=== PATIENT | female | born 1935 | race Caucasian/White ===

== ENCOUNTER 2018-04-11 14:03 | Emergency (ER) | payer MEDICARE, BC ==
[2018-04-11 14:48] VITALS: BP 121/67
--- NOTE | 2018-04-11 15:20 | UC ---
Complaint Female HPI - HPI Summary HPI Summary: 82YO FEMALE who comes to clinic today with a complaint of increased urinary frequency and dysuria for several days. The pain is mild. There is no flank pain. No fevers or chills. Drinking more water decreases the pain but the frequency remains. This reminds the patient of prior UTIs. - History Of Current Complaint Chief Complaint: UCGU Stated Complaint: URINARY Time Seen by Provider: 04/11/18 15:13 Hx Last Menstrual Period: n/a Pain Intensity: 8 - Allergies/Home Medications Allergies/Adverse Reactions: Allergies Allergy/AdvReac Type Severity Reaction Status Date / Time MS Penicillins [Penicillins] Allergy Hives Verified 07/11/15 13:31 NSAIDS (Non-Steroidal Allergy See Comment Verified 04/11/18 14:46 Anti-Inflamma MS Omeprazole [From Prilosec] AdvReac Headache Verified 07/11/15 13:31 Home Medications: Home Medications Mesalamine [Lialda] 2.4 gm PO DAILY 04/11/18 [History Confirmed 04/11/18] PMH/Surg Hx/FS Hx/Imm Hx Previously Healthy: No - Surgical History Surgical History: Yes Surgery Procedure, Year, and Place: Rt Vestibular Nerve section-1987, Cholecystectomy 2000, Right Mastectomy-2004. D&C X2 - Family History Known Family History: Positive: Hypertension Negative: Diabetes - Social History Alcohol Use: "one or two glasses of wine a week" Alcohol Amount: 1-2 Substance Use Type: None Smoking Status (MU): Never Smoked Tobacco Have You Smoked in the Last Year: No - Immunization History Most Recent Influenza Vaccination: April 2015 Review of Systems Constitutional: Negative Skin: Negative Eyes: Negative ENT: Negative Respiratory: Negative Cardiovascular: Negative Gastrointestinal: Negative Genitourinary: Dysuria, Frequency Motor: Negative Neurovascular: Negative Musculoskeletal: Negative Neurological: Negative Is Patient Immunocompromised?: No All Other Systems Reviewed And Are Negative: Yes Physical Exam Triage Information Reviewed: Yes Appearance: Well-Appearing, No Pain Distress, Well-Nourished Vital Signs: Initial Vital Signs Temp 97.4 F 04/11/18 14:39 Pulse 90 04/11/18 14:39 Resp 17 04/11/18 14:39 BP 121/67 04/11/18 14:39 Pulse Ox 96 04/11/18 14:39 Vital Signs Reviewed: Yes Neck: Positive: Supple Respiratory: Positive: Lungs clear, Normal breath sounds, No respiratory distress Cardiovascular: Positive: RRR Abdomen Description: Positive: Nontender. Negative: CVA Tenderness (R), CVA Tenderness (L) Bowel Sounds: Positive: Present Musculoskeletal: Positive: Strength Intact, ROM Intact Neurological Exam: Normal Neurological: Positive: Alert Psychological Exam: Normal Skin Exam: Normal Diagnostics - Laboratory Diagnostic Studies Completed/Ordered: Urine shows some leukocytes and blood Complaint Female Dx - Course Course Of Treatment: I prescribed nitrofurantoin 100 mg by mouth twice a day 7 days. Follow-up PMD. Recheck sooner if worse. - Differential Dx/Diagnosis Provider Diagnoses: UTI Discharge - Sign-Out/Discharge Documenting (check all that apply): Patient Departure All imaging exams completed and their final reports reviewed: No Studies - Discharge Plan Condition: Stable Disposition: HOME Prescriptions: Nitrofurantoin Monohyd/M-Cryst [Macrobid 100 mg Capsule] 100 mg PO BID #14 cap Patient Education Materials: Urinary Tract Infection in Women (ED) Referrals: Ashvin Parker MD [Primary Care Provider] - Additional Instructions: FOLLOW UP WITH YOUR DOCTOR. GET RECHECKED FOR ANY WORSENING OF YOUR CONDITION OR QUESTIONS OR CONCERNS. - Billing Disposition and Condition Condition: STABLE Disposition: Home - Attestation Statements Document Initiated by Scribe: Gisselle
== END 2018-04-11 15:34 | disposition home or self-care (01) ==
LOC: UCCORT 14:03
DX: N39.0 Urinary tract infection, site not specified (principal); Z88.0 Allergy status to penicillin; Z88.8 Allergy status to other drugs, medicaments and biological substances
CPT/HCPCS: 81003; 87086; 99212; G0463

== ENCOUNTER 2018-11-18 12:51 | Emergency (ER) | payer MEDICARE, BC ==
[2018-11-18 13:19] VITALS: BP 126/75
--- NOTE | 2018-11-18 13:37 | UC ---
Complaint Female HPI - HPI Summary HPI Summary: Pt presents with c/o sudden onset of pain with urination X 1 day. - History Of Current Complaint Stated Complaint: URINARY COMPLAINT Time Seen by Provider: 11/18/18 13:15 Hx Obtained From: Patient Hx Last Menstrual Period: n/a ?: No Onset/Duration: Sudden Onset, Lasting Days, Still Present Timing: Constant Severity Initially: Mild Severity Currently: Mild Pain Intensity: 0 Character: Dull, Burning Aggravating Factor(s): Urination Associated Signs And Symptoms: Positive: Negative - Risk Factors Ectopic Risk Factor: Negative Ovarian Torsion Risk Factor: Negative - Allergies/Home Medications Allergies/Adverse Reactions: Allergies Allergy/AdvReac Type Severity Reaction Status Date / Time NSAIDS (Non-Steroidal Allergy See Comment Verified 04/11/18 14:46 Anti-Inflamma omeprazole Allergy Headache Verified 11/18/18 13:13 Penicillins Allergy Hives Verified 11/18/18 13:13 PMH/Surg Hx/FS Hx/Imm Hx Previously Healthy: Yes Cardiovascular History: Hypertension - Surgical History Surgical History: Yes Surgery Procedure, Year, and Place: Rt Vestibular Nerve section-1987, Cholecystectomy 2000, Right Mastectomy-2004. D&C X2 - Family History Known Family History: Positive: Hypertension Negative: Diabetes - Social History Occupation: Retired Lives: With Family Alcohol Use: Occasionally Alcohol Amount: 1-2 Substance Use Type: None Smoking Status (MU): Never Smoked Tobacco Have You Smoked in the Last Year: No - Immunization History Most Recent Influenza Vaccination: April 2015 Vaccination Up to Date: No Review of Systems All Other Systems Reviewed And Are Negative: Yes Constitutional: Positive: Negative Skin: Positive: Negative Eyes: Positive: Negative ENT: Positive: Negative Respiratory: Positive: Negative Cardiovascular: Positive: Negative Gastrointestinal: Positive: Negative Genitourinary: Positive: Dysuria Motor: Positive: Negative Neurovascular: Positive: Negative Musculoskeletal: Positive: Negative Neurological: Positive: Negative Psychological: Positive: Negative Is Patient Immunocompromised?: No Physical Exam Triage Information Reviewed: Yes Appearance: Well-Appearing Vital Signs: Initial Vital Signs Temp 97.3 F 11/18/18 13:16 Pulse 86 11/18/18 13:16 Resp 18 11/18/18 13:16 BP 126/75 11/18/18 13:16 Pulse Ox 98 11/18/18 13:16 Vital Signs Reviewed: Yes Eye Exam: Normal ENT Exam: Normal Dental Exam: Normal Neck exam: Normal Respiratory Exam: Normal Cardiovascular Exam: Normal Abdominal Exam: Normal Musculoskeletal Exam: Normal Neurological Exam: Normal Psychological Exam: Normal Skin Exam: Normal Complaint Female Dx - Differential Dx/Diagnosis Differential Diagnosis/HQI/PQRI: Urinary Tract Infection Provider Diagnosis: UTI (urinary tract infection) Discharge - Sign-Out/Discharge Documenting (check all that apply): Patient Departure All imaging exams completed and their final reports reviewed: No Studies - Discharge Plan Condition: Stable Disposition: HOME Prescriptions: Nitrofurantoin Monohyd/M-Cryst [Macrobid 100 mg Capsule] 100 mg PO Q12H #10 cap Sulfamethox/Trimethoprim DS* [Bactrim DS 800/160 TAB*] 1 tab PO BID 5 Days #10 tab Patient Education Materials: Urinary Tract Infection in Women (ED) Referrals: Reza Bernabe MD [Medical Doctor] - If Needed Ashvin Praker MD [Primary Care Provider] - If Needed - Billing Disposition and Condition Condition: STABLE Disposition: Home - Attestation Statements Provider Attestation: Chart reviewed. I was available for consult. I did not see nor disposition this patient.
== END 2018-11-18 13:55 | disposition home or self-care (01) ==
LOC: UCCORT 12:51
DX: N39.0 Urinary tract infection, site not specified (principal); I10 Essential (primary) hypertension; Z88.0 Allergy status to penicillin; Z88.8 Allergy status to other drugs, medicaments and biological substances
CPT/HCPCS: 81003; 87077; 87086; 87186; 99212; G0463

== ENCOUNTER 2018-11-29 09:55 | Emergency (ER) | payer MEDICARE, BC ==
[2018-11-29 10:54] VITALS: BP 90/49
--- NOTE | 2018-11-29 11:09 | UC ---
UC General HPI - HPI Summary HPI Summary: Patient c/o lower sacral pain worse over the past 3-4 days. Patient with known arthritis and DJD - she has been going to a chiropractor since june every other week - does not seem to be helping. Has known sciatic b/l, worse on left. Known weakness in LLE. No numbness or tingling. Denies any falls. No exertional activity. Had her grandson take out her garbage. States she can only take tylenol due to her microscopic colitis - Her GI doc told her she can' t take NSAIDs. No falls. Lives alone. Independent of ADLs. No assist device. ALso has known neck pain - pain with movement. In the process of switching to a PCP in [place]. not interested in any surgical intervention. Meds: Reviewed - History of Current Complaint Chief Complaint: UCBackPain Stated Complaint: LOWER BACK PAIN Time Seen by Provider: 11/29/18 10:51 Hx Last Menstrual Period: n/a Pain Intensity: 0 - Allergy/Home Medications Allergies/Adverse Reactions: Allergies Allergy/AdvReac Type Severity Reaction Status Date / Time NSAIDS (Non-Steroidal Allergy See Comment Verified 11/29/18 10:54 Anti-Inflamma omeprazole Allergy Headache Verified 11/29/18 10:54 Penicillins Allergy Hives Verified 11/29/18 10:54 Home Medications: Home Medications Cyanocobalamin TAB* [Vitamin B12 TAB*] 1,000 mcg PO DAILY 11/29/18 [History Confirmed 11/29/18] PMH/Surg Hx/FS Hx/Imm Hx Previously Healthy: Yes Cardiovascular History: Hypertension GI/ History: Other - microscopic arthritis - Surgical History Surgical History: Yes Surgery Procedure, Year, and Place: Rt Vestibular Nerve section-1987, Cholecystectomy 2000, Right Mastectomy-2004. D&C X2 - Family History Known Family History: Positive: Hypertension Negative: Diabetes - Social History Alcohol Use: Occasionally Alcohol Amount: 1-2 Substance Use Type: None Smoking Status (MU): Never Smoked Tobacco Have You Smoked in the Last Year: No - Immunization History Most Recent Influenza Vaccination: April 2015 Vaccination Up to Date: No Review of Systems All Other Systems Reviewed And Are Negative: Yes Musculoskeletal: Positive: Decreased ROM Physical Exam Triage Information Reviewed: Yes Appearance: Well-Appearing, Other: - diaphoretic -Not new Vital Signs: Initial Vital Signs Temp 97.9 F 11/29/18 10:43 Pulse 99 11/29/18 10:43 Resp 18 11/29/18 10:43 BP 90/49 11/29/18 10:43 Pulse Ox 97 11/29/18 10:43 Vital Signs Reviewed: Yes Neck: Positive: Supple, Nontender, Other: - Pain with ROM Musculoskeletal: Positive: Other: - pain with movement in sacral/pelvic region. No pain on palpation over spinous process Pain with ROM rotation and flexion of cervical spine. Neurological: Positive: Other: - right sided facial droop (chronic) LLE weakness (chronic) Diagnostics - Radiology pelvis xray Radiology Interpretation Completed By: Radiologist Summary of Radiographic Findings: Osteoarthritis. No acute finding Course/Dx - Course Course Of Treatment: This is an 83 yr old with pelvic/sacral pain Assessment Known significant DJD on prior radiographs No knew neurologic findings Patient not interested in any surgical intervention Pelvic xray: unremarkable Plan Recommend scheduled tylenol 650 mg every 6 hours Recommend follow up with physical therapy Recommend follow up at the pain clinic Your blood pressure is noted to be low - Recommend discontinuing your dyazide and follow up with your PCP - Diagnoses Provider Diagnosis: Osteoarthritis Discharge - Sign-Out/Discharge Documenting (check all that apply): Patient Departure All imaging exams completed and their final reports reviewed: Yes - Discharge Plan Condition: Fair Disposition: HOME Referrals: Wilman Barraza MD [Medical Doctor] - Ashvin Parker MD [Primary Care Provider] - Additional Instructions: Recommend scheduled tylenol 650 mg every 6 hours Recommend follow up with physical therapy Recommend follow up at the pain clinic Your blood pressure is noted to be low - Recommend discontinuing your dyazide and follow up with your PCP. Continue to check your blood pressure at home. Record it and bring in to your new PCP - Billing Disposition and Condition Condition: FAIR Disposition: Home
== END 2018-11-29 12:02 | disposition home or self-care (01) ==
LOC: UCCORT 09:55
DX: M43.06 Spondylolysis, lumbar region (principal); I10 Essential (primary) hypertension; M19.90 Unspecified osteoarthritis, unspecified site; Z88.0 Allergy status to penicillin; Z88.8 Allergy status to other drugs, medicaments and biological substances
CPT/HCPCS: 72190; 99211; G0463

== ENCOUNTER 2019-08-14 12:26 | Emergency (ER) | payer MEDICARE, BC ==
--- OUTSIDE RECORDS SUMMARY | 2019-08-14 12:41 | XMS REPORT | Continuity of Care Document ---
:1935 External Reference #:[id number] Author Name Petra Noble MD, PHD Address [address] [place] [address], [address] [place] [phone] Care Team Providers Name Role Phone Jesus Mensah MD - Otolaryngology Care Team Information Plant Nursery Worker [phone] Jemal Branch MD - Surgery Care Team Information Plant Nursery Worker [phone] Petra Noble MD, PHD - Family Care Team Information Plant Nursery Worker [phone] Medicine Problems Active Problems Provider Date History and physical examination, follow-up Jemal Branch MD Onset: 2010 Note: for removal of Groshong catheter and port 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 Insomnia Petra Noble MD, PHD Onset: 12/14/2018 Female climacteric state Petra Noble MD, PHD Onset: 12/14/2018 Sciatica Petra Noble MD, PHD Onset: 12/14/2018 Petra Graham MD, PHD Onset: 06/15/2019 Facial palsy Petra Noble MD, PHD Onset: 06/15/2019 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 Petra Noble MD, PHD Onset: pathological fracture Screening mammography Petra Noble MD, PHD Onset: 06/15/2019 Impaired fasting glycaemia Petra Noble MD, PHD Onset: 06/15/2019 Family history of diabetes mellitus Petra Noble MD, PHD Onset: 2018 Facial nerve disorder Petra Noble MD, PHD Onset: 06/15/2019 Essential hypertension Petra Noble MD, PHD Onset: 06/15/2019 Social History Type Date Description Comments Sex Unknown Tobacco Use Start: Unknown Never Smoked Cigarettes ETOH Use Rarely consumes alcohol Tobacco Use Start: Unknown Patient has never smoked Recreational Drug Use Never Used Drugs Smoking Status Reviewed: 06/15/19 Patient has never smoked Enjoy Exercising Patient enjoys exercising Allergies, Adverse Reactions, Alerts Active Allergies Reaction Severity Comments Date Penicillin hives 10/22/2010 Medications Active Medications SIG Qnty Indications Ordering Provider Date CBD Oil 60 mg under Petra Noble, 06/15/2019 toungue every 6 , PHD hours as needed Mastectomy Bra right side 4units Jemal Branch MD 03/01/2012 Misc Paroxetine HCL 1 by mouth every 90tabs Petra Noble, 10mg day , PHD Tablets Triamterene/Hydrochlo take one tablet 90tabs Petra Noble, rothiazide by mouth every , PHD 37.5-25mg morning Tablets Citracal +D3 2 by mouth every Unknown day [phone]-mg-Unit Chewtabs Vitamin D3 1 by mouth every Unknown 1000Unit day Tablets Pravastatin Sodium 1 by mouth every 90tabs Petra Noble, 20mg day , PHD Tablets Mesalamine 1 by mouth two Unknown 1.2gm times a day From Tablets DR Dr Cazares Vitamin B-12 1 by mouth every Unknown 500mcg day Tablets History Medications Gabapentin 1-3 caps by 90caps M54.41 Petra Noble, 12/14/2018 - 100mg mouth at bedtime , PHD 06/15/2019 Capsules as needed for sweats and sleep. G47.00 N95.1 Immunizations CPT Code Status Date Vaccine Lot # [id number] Given 05/10/2019 Influenza Virus Vaccine, Quadrivalent, 36 Mos+, .5ML Vital Signs Date Vital Result Comment 06/15/2019 1:30pm BP Systolic 121 mmHg BP Diastolic 68 mmHg Body Temperature 97.8 F Heart Rate 94 /min Respiratory Rate 16 /min Height 66 inches 5'6" Weight 172.00 lb BMI (Body Mass Index) 27.8 kg/m2 BSA (Body Surface Area) 1.88 m2 [place] body weight in kilograms 59 kg O2 % BldC Oximetry 97 % 12/14/2018 1:47pm BP Systolic 132 mmHg BP Diastolic 75 mmHg Body Temperature 98.6 F Heart Rate 88 /min Respiratory Rate 20 /min Height 66 inches 5'6" Weight 172.00 lb BMI (Body Mass Index) 27.8 kg/m2 BSA (Body Surface Area) 1.88 m2 [place] body weight in kilograms 59 kg O2 % BldC Oximetry 96 % Results Test Acquired Date Facility Test Result H/L Range Note Laboratory test 06/15/2019 [facility] Vitamin <pending> finding [address] [address] [phone] Laboratory test 06/15/2019 [facility] Sedimentation Rate <pending> finding [address] [place] [address] [phone] Glycohemoglobin A1c <pending> Procedures Date Code Description Status 07/30/2010 [id number] Mammogram Completed 08/12/2009 [id number] Colonoscopy Completed 07/23/2009 [id number] Mammogram Completed 05/12/2004 [id number] Colonoscopy Completed Medical Devices Description No Information Available Encounters Type Date Location Provider Dx Diagnosis Office Visit 12/14/2018 Family Medicine Petra Noble, G47.00 Insomnia, 1:45p García Lopez MD, PHD unspecified N95.1 Menopausal and female climacteric states M54.41 Lumbago with sciatica, right side Assessments Date Code Description Provider 06/15/2019 I10 Essential (primary) hypertension Petra Noble MD, PHD 06/15/2019 M54.41 Lumbago with sciatica, right side Petra Noble MD, PHD 06/15/2019 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, unspecified Petra Noble MD, PHD 06/15/2019 Z83.3 Family history of diabetes mellitus Petra Noble MD, PHD 06/15/2019 R73.01 Impaired fasting glucose Petra Noble MD, PHD 06/15/2019 M81.0 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 Petra Noble MD, PHD pathological fracture 06/15/2019 Z12.31 Encounter for screening mammogram for Petra Noble MD , PHD malignant neoplasm of breast 12/14/2018 G47.00 Insomnia, unspecified Petra Noble MD, PHD 12/14/2018 N95.1 Menopausal and female climacteric states Petra Noble MD, PHD 12/14/2018 M54.41 Lumbago with sciatica, right side Petra Noble MD, PHD Plan of Treatment 06/15/2019 - Petra Noble MD, PHDI10 Essential (primary) hypertensionComments:PRESSURE POINTS1 What high blood pressure is. Blood pressure is the force that your blood exerts onthe mcleod of the arteries it flows through, just like water flowing through a garden hose pushes against the hose??s mcleod. Your blood pressure consists of two numbers. ??Systolic is the pressure on blood vessel mcleod during heart beats,?? says Chucho King, professor of cardiovascular disease prevention at the [employer]. ??Diastolic is the pressure between beats,?? so it??s lower. When people have high blood pressure??also called hypertension??it??s often because blood vessels are too rigid to expand when the heart pumps. It??s as though the hose were made of glass instead of rubber. 2 Everyone is at risk. Why worry about high blood pressure if you haven??t been diagnosed with it? Because, odds are, you eventually will be. ??Over time, 90 percent of people in this country develop hypertension,?? says Luis Santos, professor of preventive medicine at the [employer]. That??s because blood pressure typically creeps up as youage. In the Atherosclerosis Risk in Communities study, which followed more than 15,000 Americans aged 45 to 64, average systolic blood pressure sweetie by five points in five years.1 ??Blood pressures drift upward as people get older and they??re exposed to long-term excess sodium,?? explains Danielle. ??That??s why almost all adults are going to get blood pressures that put them at higher risk for heart disease and stroke.?? But most hypertension is preventable with a healthy diet and exercise, he adds.3 Your risk starts to rise at any blood pressure above ?? normal.?? Doctors used to diagnose patientswith hypertension when their systolic pressure reached NORMAL BLOOD PRESSURE <120/<80 * Recommendations : Healthy lifestyle choices and yearly checks.ELEVATED BLOOD PRESSURE 120-129/& lt;80 * Recommendations: Healthy lifestyle changes, reassessed in 3-6 months.HIGH BLOOD PRESSURE / STAGE 1 130-139/80-89 * Recommendations: 10-year heart disease and stroke risk assessment. If less than 10% risk, lifestyle changes, reassessed in 3-6 months. If higher, lifestyle changes and medication with monthly follow-ups until blood pressure is controlled. HIGH BLOOD PRESSURE / STAGE 2 >140/>90 * Recommendations: Lifestyle changes and 2 different classes of medicine, with monthly follow-ups until blood pressure is controlled.How much diet and exercise can lower your blood pressure Got high blood pressure? You??re in good company.Nearly half of [place] adults now have hypertension, according to recent guidelines from the [place] [employer] and the [place] [employer].That means that many people who had ??prehypertension?? according to the old guidelines now have ??stage 1 hypertension.?? Most of them don??t need to start taking drugs to lower their pressure (that depends on other risk factors). Instead, the guidelines recommend a healthy lifestyle.Why? Because it works. Here??s how much your systolic pressure (the higher of your two blood pressure numbers) could fall with diet and exercise, according to the new guidelines:1. Eat a DASH diet: 11 pointsDon??t want to count servings?Start by filling half your plate with fruits and vegetables.A DASH-style diet does it all: protects your heart, piles on the fruits and veggies, and cuts unhealthy carbs. It??s not only low in saturated fat, sugar, and salt, it??s also rich in nutrients like potassium, magnesium, calcium, and fiber.Plus, DASH works for omnivores or vegetarians.2. Exercise: 5 pointsAny kind of exercise helps.All formsof exercise will lower blood pressure, but the best evidence is for aerobic activity. Aim for 90 to 150 minutes a week of aerobics (brisk walking, biking, running, etc.) and/or resistance training (biceps curls, leg presses, etc.).If you??re starting with walking, here??s how to ramp up the intensity gradually.3. Lose weight: 5 pointsDropping extra pounds can lower your pressure.Losing excess weight helps lower blood pressure. Expect about a 1 point drop in systolic pressure for every 2 pounds you lose.4. Cut salt: 5 pointsMost sodium comes from packaged and restaurant foods that don??t even taste salty.To lower blood pressure, cut your sodium by 1,000 milligrams a day, ideally to 1,500 mg a day. Start with these seven foods.Bread. About 100 to 200 mg of sodium per slice is typical. Soundsupply and some other brands make it easy to stay at the low end.Cheese. Most types have 150 to 250 mg ofsodium per ounce. Try Micronesian (just 40 to 60 mg) or fresh mozzarella (80 to 100 mg) or just 1 ??slim cut?? or ??thin ?? slice of your favorite variety.Poultry. The salt solution that??s often added to rawchicken or turkey can add 120 mg of sodium to the poultry??s 80 mg of (naturally occurring) sodium. So avoid poultry with labels like ??Contains up to 15% of a solution.??Deli meats. Just 2 oz. can pile 500 to 700 mg of sodium on your sandwich. Get Boar??s Head??s (or another brand??s) ??low-sodium? ? meats that are sliced at the deli counter (about 50 to 80 mg in 2 oz.).Soup. Most soups deliver 600 to 900 mg of sodium per cup. Try Imagine, Deuel, Dr. Wesley??s, Priyanka??s Organic, or Rehab Trainer Mina??s ??Light in Sodium?? or ??Reduced Sodium?? soups instead (200 to 400 mg).Pizza. You can easily get 1,000 mg of sodium in 2 slices. Go light on the cheese, and replace meat with veggies (not olives).Restaurant entre??es. Many pack 1,000 to 2,000 mg of sodium. Save half for later. And add a side salad or other veggies to boost potassium.5. Get more potassium: 4 to 5 pointsAnother reason to eat more vegetables: potassium.The goal: Get 3,500 to 5,000 milligrams of potassium a day. You??ll get the most bang for your calorie [place] with fruits and vegetables. Some examples: Calories Potassium (mg):Baked potato with skin (1 small) 130 750 Beet greens (?? cup cooked) 20 650 Yellowfin tuna (4 oz. cooked) 121471 Sweet potato with skin (1 small) 130 540 Wild Coho salmon (4 oz. cooked) 160 490 Spinach (?? cupcooked) 20 420 Banana (1) 110 420 Low-fat plain yogurt (6 oz.) 110 400 Fat-free milk (1 cup) 80 380 Cantaloupe (??) 50 370 Lentils (?? cup cooked) 120 370 Bella beans ( ?? cup cooked) 120 370 Tomato sauce (?? cup) 30 360 Avocado (?? cup) 120 360 Spinach (2 cups raw) 10 340 Shelled edamame (?? cup cooked) 100 340 [place] or nectarine (1) 60 290 [place] sprouts (?? cup cooked) 30 250 [place] (1) 70 240 Blaine lettuce (2 cups raw) 10 230 Apple (1) 100 200 6. Limit alcohol: 4 pointsLimiting alcohol helps keep your pressure in check.If you drink, stop at one drink a day for women or two for men.Find this article interesting and useful? Order a copy of Safe & Easy Steps to Lower Your Blood Pressure. Nine out of 10 Americans will eventually have high blood pressure and, with it, an increased risk of stroke, heart attack, diabetes, dementia, and more. Eating the right diet, losing weight, and exercising can keep your pressure under control. And, if you do have hypertension, it can lower your pressureas much as? ?or more than??prescription drugs. This booklet, from the editors of [employer], shows you how. (48 pages)Dr. Noble Can Print this out for you.The information in this post first appeared in [employer] Healthletter in August 2017.WHAT WORKS? If you have high blood pressure, here??s roughly how much of a drop in systolic pressure you can expect from changes in diet and from exercise.Advice ~ What It Means ~ Typical Drop in Systolic Blood Pressure: Maintain a Normal Weight ~ Lose??or don??t gain??excess weight ~ 5 points for every 10 pounds you lose. Follow a DASH Diet ~ Eat a diet: ?? rich in vegetables & fruits ?? that includes whole grains, low-fat dairy, poultry, fish, beans, nuts, & oils ?? low in sugar & red meat ~ 11 pointsCut Sodium ~ Consume no more than 2,400??milligrams a day (1,500 mg a day lowers pressure even more)~ 5 pointsBoost Potassium ~ Shoot for 3,500 to 5,000 milligrams a day, mostly from fruits and vegetables ~ 4-5 pointsExercise ~ Doat least 30 minutes of aerobic activity (like brisk walking) most days of the week ~ 5 pointsLimitAlcohol ~ Men: No more than 2 drinks a day Women: No more than 1 drink a day ~ 4 zaakbzD74.41 Lumbago with sciatica, right side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, gmdmaptdffwZ44.3 Family history of diabetes ssfepdseU37.01 Impaired fasting juonzoqN34.0 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 pathological fractureNew Xrays:Dexa Scan, 1 Or More, Ordered: Z12.31 Encounter for screening mammogram for malignant neoplasm of breastNew Xrays:Mammography, Bilateral Mammogram Diagnostic, Ordered: 06/15/19AllNew Medication:CBD Oil - 60 mg under toungue every 6 hours as needed Functional Status Functional Condition Comment Date Status Independent with all ADL's Active Mental Status Description No Information Available Referrals Description No Information Available
--- OUTSIDE RECORDS SUMMARY | 2019-08-14 12:41 | XMS REPORT | Continuity of Care Document ---
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 Insomnia Petra Noble MD, PHD Onset: 12/14/2018 Female climacteric state Petra Noble MD, PHD Onset: 12/14/2018 Petar Graham MD, PHD Onset: 12/14/2018 Petra Graham MD, [...] Use Never Used Drugs Smoking Status Reviewed: 07/16/19 Patient has never smoked Enjoy Exercising Patient [...] +D3 2 by mouth every Unknown day [phone]-mg-Unit Chewtabs Vitamin D3 1 by mouth every Unknown 1000Unit day Tablets Pravastatin Sodium 1 by mouth every 90tabs Petra Noble, 20mg day , PHD Tablets Mesalamine 1 by mouth two Unknown 1.2gm times a day From Tablets DR Dr Cazares Vitamin B-12 1 by mouth every Unknown 500mcg day Tablets Immunizations CPT Code Status Date Vaccine Lot # [id number] Given 05/10/2019 Influenza Virus Vaccine, Quadrivalent, 36 Mos+, .5ML Vital Signs Date Vital Result Comment 06/15/2019 1:30pm BP Systolic 121 mmHg BP Diastolic 68 mmHg Body Temperature 97.8 F Heart Rate 94 /min Respiratory Rate 16 /min Height 66 inches 5'6" Weight 172.00 lb BMI (Body Mass Index) 27.8 kg/m2 BSA (Body Surface Area) 1.88 m2 [place] body weight in kilograms 59 kg O2 % BldC Oximetry 97 % 12/14/2018 1:47pm BP Systolic 132 mmHg BP Diastolic 75 mmHg Body Temperature 98.6 F Heart Rate 88 /min Respiratory Rate 20 /min Height 66 inches 5'6" Weight 172.00 lb BMI (Body Mass Index) 27.8 kg/m2 BSA (Body Surface Area) 1.88 m2 [place] body weight in kilograms 59 kg O2 % BldC Oximetry 96 % Results Test Acquired Date Facility Test Result H/L Range Note Laboratory test 06/15/2019 [facility] Vitamin 52.6 ng/mL 30.0-100. 1, [address],25-Hydroxy 0 [place] [address] [phone] CBC W/Automated 06/15/2019 [facility] White Blood 4.7 K/uL Normal 3.1-10.[address] [place] [address] [phone] Red Blood Count 4.92 M/uL Normal 3.90-5.40 Hemoglobin 15.7 gm/dL Normal 11.6-15.8 Hematocrit 44.9 % Normal 36.0-46.1 Mean Cell Volume 91.3 fl Normal 80.9-99.0 Mean Corpuscular HGB 31.9 pg Normal 25.9-32.7 Mean Corpuscular HGB Conc 35.0 g/dL High 30.8-34.3 Platelet Count 263 K/uL Normal 155-360 Red Cell Distri Width SD 40.7 fl Normal 36-47 Red Cell Distri Width %CV 12.2 % Normal 11.7-14.4 Mean Platelet Volume 9.8 fl Normal 8.9-12.4 Neut% 51.9 % Normal 40.4-72.8 Lymph % 34.2 % Normal 20.0-42.0 [place] % 9.4 % Normal 4.3-13.2 Eo% 3.4 % Normal 0.0-6.6 Bas% 1.1 % Normal 0.0-1.1 Immature Grans 0.0 % Normal 0.0-5.0 NRBC % 0.0 /100WBC < 10/ 100 WBC Neut# 2.43 K/uL Normal 1.8-7.0 Lymph # 1.60 K/uL Normal 1.0-4.0 [place] # 0.44 K/uL Normal 0.3-0.9 Eos # 0.16 K/uL Normal 0.0-0.5 Baso # 0.05 K/uL Normal 0.0-0.1 Immature Grans Absolute 0.00 K/uL NRBC # 0.00 K/uL Comprehensive Metabolic 06/15/2019 [facility] Glucose 110 mg/dL High 74-[address] [place], [place] [id number] [phone] BUN 19 mg/dL High 7-18 Creatinine 0.9 mg/dL Normal 0.6-1.3 Glom Filtration Rate, Estimate >60 mL/min >60 If >60 mL/min >60 3 BUN/Creat 21.1 ratio Sodium 140 mmol/L Normal 136-145 Potassium 3.3 mmol/L Low 3.5-5.1 Chloride 104 mmol/L Normal 98-107 Carbon Dioxide 31 mmol/L Normal 21-32 Anion Gap 5 mEq/L Low 8-16 Calcium 9.5 mg/dL Normal 8.5-10.1 Total Protein 7.5 g/dL Normal 6.4-8.2 Albumin 4.0 g/dL Normal 3.4-5.0 Globulin 3.5 g/dL Normal 1.9-4.3 Alb/Glob 1.1 ratio Bilirubin,Total 0.5 mg/dL Normal 0.2-1.0 Sgot/Ast 17 U/L Normal 15-37 SGPT/Alt 22 U/L Normal 12-78 Alkaline Phosphatase 59 U/L Normal 45-117 Laboratory test 06/15/2019 [facility] Sedimentation 6 mm/hr Normal 0-30 [address] [place] [address] [phone] Glycohemoglobin 06/15/2019 [facility] Glycohemoglobin 5.7 % Normal 4.2-6. [address] (A1c) 3 [place], [place] [id number] [phone] eAG 117 mg/dL Vitamin B12 And 06/15/2019 [facility] Vitamin B12 1032 pg/mL High 193-[address] [place], [place] [address] [phone] Folic Acid 19.0 ng/mL High 3.1-17.5 1 M54.41 2 Vitamin D deficiency has been defined by the [place] of [employer] and an Endocrine Society practice guideline as a level of serum 25-OH vitamin D less than 20 ng/mL (1,2). The Endocrine Society went on to further define vitamin D insufficiency as a level between 21 and 29 ng/mL (2). 1. IOM ([place] of [employer]). 2010. Dietary reference intakes for calcium and D. [place]: The National Academies Press. 2. German MF, Rosa Isela LAGUERRE, Amina RUSSO, et al. Evaluation, treatment, and prevention of vitamin D deficiency: an Endocrine Society clinical practice guideline. JCEM. 2010; 96(7):1911-30. Performed at: RN - [facility] [address] [id number] [employer] [employer] Operations Staff Officer: Vesna Barry MD, Phone: [phone] Note: Persistent reduction for 3 months or more in an eGFR <60 mL/min/1.73 m2 defines CKD. Patients with eGFR values >/=60 mL/min/1.73 m2 may also have CKD if evidence of persistent proteinuria is present. The original MDRD equation for estimated GFR is not valid for patients less than 18 years of age. Additional information may be found at www.kdoqi.org. 4 Method: Sediplast Modified Westergren 5 Elevated levels of HbA1c suggest the need for more aggressive treatment of glycemia. The [place] Diabetes Association recommends that a primary goal of therapy should be a HbA1c of <7% and that physicians should re-evaluate the treatment regimen in patients with HbA1c values consistently >8%. 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, unspecified Z83.3 Family history of diabetes mellitus R73.01 Impaired fasting glucose M81.0 Age-related osteoporosis w/o current pathological fracture Z12.31 Encntr screen mammogram for malignant neoplasm of breast Assessments Date Code Description Provider 07/16/2019 H25.813 Combined forms of age-related cataract, Sims, Nikolas, MD bilateral 07/16/2019 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, unspecified Nikolas Sims MD 07/16/2019 H43.813 Vitreous degeneration, bilateral Nikolas Sims MD 07/16/2019 H04.123 Dry eye syndrome of bilateral lacrimal Nikolas Sims MD glands 06/15/2019 I10 Essential (primary) hypertension Petra Noble [...] MD , PHD malignant neoplasm of breast Plan of Treatment Future Appointment(s):07/17/2020 1:00 pm - Nikolas Sims MD at [facility]/ 18/2020 1:00 pm - Petra Noble MD, PHD at [facility] - Nikolas Sims MDH25.813 Combined forms of age-related cataract, bilateralComments:- visually significant right eye- if becomes bothersome, can consider cataract extraction- as not bothersome, ok to follow at this timeFollow up:1 year exam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, unspecifiedComments:- no sign of active exposure 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; appears stable- ok to continue veffsysyshtM15.813 Vitreous degeneration, bilateralComments:- no sign of retinal break or tear- review signs and symptoms of retinal detachment- review visual field self-assessment and need for evalH04.123 Dry eye syndrome of bilateral lacrimal glandsComments: - warm compresses: wash cloth, warm water- artificial tears both eyes: can use 4 -6 times daily for irritation, tearing- consider ointment at night - lubricating ointments available over the counter include lacri-lube, systane, refresh pm- can consider punctal occlusion or restasis if refractory to above Functional Status Functional Condition Comment Date Status Independent with all ADL's Active Mental Status Description No Information Available Referrals Description No Information Available
[2019-08-14 12:50] VITALS: BP 129/77
--- NOTE | 2019-08-14 12:59 | UC ---
Complaint Female HPI - HPI Summary HPI Summary: 83 yo female presents with UTI symptoms. She tells me that for the past week has had intermittent dysuria, but more constant over the last 2 days. Bladder pressure with urinary frequency. She has had many UTIs in the past and follows with [facility]. She has had extensive work ups from Urology pt states. Pt states that they usually rx macrobid for her if positive dip and symptoms. She denies fever, chills, abdominal pain, n/v, flank pain, vaginal discharge or bleeding. - History Of Current Complaint Chief Complaint: UCGU Stated Complaint: URINARY Time Seen by Provider: 08/14/19 12:59 Hx Obtained From: Patient Hx Last Menstrual Period: n/a Onset/Duration: Gradual Onset Severity Initially: Mild Severity Currently: Mild Pain Intensity: 3 Pain Scale Used: 0-10 Numeric - Allergies/Home Medications Allergies/Adverse Reactions: Allergies Allergy/AdvReac Type Severity Reaction Status Date / Time NSAIDS (Non-Steroidal Allergy See Comment Verified 08/14/19 12:45 Anti-Inflamma omeprazole Allergy Headache Verified 08/14/19 12:45 Penicillins Allergy Hives Verified 08/14/19 12:45 Home Medications: Home Medications Pravastatin (NF) [Pravachol (NF)] 20 mg PO DAILY 08/14/19 [History Confirmed ] PMH/Surg Hx/FS Hx/Imm Hx Endocrine History: Dyslipidemia Cardiovascular History: Hypertension GI/ History: Other - UC Psychological History: Anxiety, Depression - Surgical History Surgical History: Yes Surgery Procedure, Year, and Place: Rt Vestibular Nerve section-1987, Cholecystectomy 2000, Right Mastectomy-2004. D&C X2 - Family History Known Family History: Positive: Hypertension Negative: Diabetes - Social History Lives: With Family Alcohol Use: Occasionally Alcohol Amount: 1-2 Substance Use Type: None Smoking Status (MU): Never Smoked Tobacco Have You Smoked in the Last Year: No - Immunization History Most Recent Influenza Vaccination: April 2015 Vaccination Up to Date: No Review of Systems All Other Systems Reviewed And Are Negative: No Constitutional: Positive: Negative Skin: Positive: Negative Respiratory: Positive: Negative Cardiovascular: Positive: Negative Gastrointestinal: Positive: Negative Genitourinary: Positive: Dysuria, Frequency, Urgency Neurological: Positive: Negative Psychological: Positive: Negative Physical Exam - Summary Physical Exam Summary: GENERAL: NAD. WDWN. No pain distress. SKIN: No rashes, sores, lesions, or open wounds. NECK: Supple. Nontender. No lymphadenopathy. CHEST: CTAB. No r/r/w. No accessory muscle use. Breathing comfortably and in no distress. CV: RRR. Pulses intact. Cap refill <2seconds ABDOMEN: Soft. NTTP. No CVA tenderness. Bowel sounds present NEURO: Alert. PSYCH: Age appropriate behavior. Triage Information Reviewed: Yes Vital Signs: Initial Vital Signs Temp 98.6 F 08/14/19 12:42 Pulse 71 08/14/19 12:42 Resp 16 08/14/19 12:42 BP 129/77 08/14/19 12:42 Pulse Ox 96 08/14/19 12:42 Laboratory Tests 08/14/19 12:54 POC Urine Color Yellow POC Urine Clarity Turbid POC Urine pH 7.0 POC Ur Specif [place] 1.015 POC Urine Protein Negative POC Ur Glucose (UA) Negative POC Urine Ketones Negative POC Urine Blood 1+ A POC Urine Nitrite Negative POC Urine Bilirubin Negative POC Urine Urobilinogen 0.2 POC U Leukocyte Esteras 3+ A Vital Signs Reviewed: Yes Complaint Female Dx - Course Course Of Treatment: UA positive. Available urine cultures to me are: 03/2019 E. Coli susceptible to macrobid 11/2018 Proteus resistant to macrobid 10/2018 Citrobacter susceptible to macrobid Will treat with macrobid at this time as pt states that is what medication she usually is prescribed for her UTIs. Urine will be sent for culture and will [facility]. - Differential Dx/Diagnosis Provider Diagnosis: UTI (urinary tract infection) Discharge ED - Sign-Out/Discharge Documenting (check all that apply): Patient Departure All imaging exams completed and their final reports reviewed: No Studies - Discharge Plan Condition: Stable Disposition: HOME Prescriptions: Nitrofurantoin Monohyd/M-Cryst [Macrobid 100 mg Capsule] 100 mg PO BID #10 cap Patient Education Materials: Urinary Tract Infection in Women (ED) Referrals: Petra Noble MD [Primary Care Provider] - Additional Instructions: If you develop a fever, shortness of breath, chest pain, new or worsening symptoms - please call your PCP or go to the ED immediately. - Billing Disposition and Condition Condition: STABLE Disposition: Home
== END 2019-08-14 13:12 | disposition home or self-care (01) ==
LOC: UCCORT 12:26
DX: N39.0 Urinary tract infection, site not specified (principal); I10 Essential (primary) hypertension; E78.5 Hyperlipidemia, unspecified; Z88.6 Allergy status to analgesic agent; Z88.8 Allergy status to other drugs, medicaments and biological substances; Z88.0 Allergy status to penicillin; Z79.899 Other long term (current) drug therapy
CPT/HCPCS: 81003; 87077; 87086; 87186; 99212; G0463